=== PATIENT | male | born 1995 | race Caucasian/White ===

== ENCOUNTER 2021-01-26 11:40 | Emergency (ER) | payer BC ==
[2021-01-26 12:32] LABS: RED BLOOD COUNT 6.29 M/UL (4.20-5.50); WHITE BLOOD COUNT 19.4 K/UL (4.5-11.0)
[2021-01-26 12:55] LABS: BUN/CREATININE RATIO 18 (0-10)
[2021-01-26] MEDS ORDERED: ZOFRAN ODT 4 MG4 MG PO (16:35)
== END 2021-01-26 17:00 | disposition home or self-care (01) ==
LOC: ER1 11:40
PROVIDERS: Student in an Organized Health Care Education/Training Program
DX: K52.9 Noninfective gastroenteritis and colitis, unspecified (principal)
CPT/HCPCS: 80053; 81001; 83605; 83690; 85025; 93005; 96374; 96375; 99284; J2405; J2765; J7030; Q9967

== ENCOUNTER 2021-04-17 10:03 | Emergency (ER) | payer BC ==
[~2021-04-17 10:03] MED LIST: ZOFRAN ODT 4 MG4 MG PO
[2021-04-17 11:13] LABS: HEMOGLOBIN 16.3 gm/dl (14.0-17.5); RED BLOOD COUNT 5.8 M/UL (4.20-5.50)
[2021-04-17 11:36] LABS: BUN/CREATININE RATIO 14 (0-10)
[2021-04-17] MEDS ORDERED: TORADOL 10 MG T10 MG PO (12:13)
[2021-04-17] MEDS ORDERED: ZOFRAN4 MG PO (12:13)
[2021-04-17] MEDS ORDERED: HYDROCODON-ACE1 EAC4 PO (12:24)
== END 2021-04-17 12:35 | disposition home or self-care (01) ==
LOC: ER1 10:03
PROVIDERS: Physician Assistant
DX: N13.2 Hydronephrosis with renal and ureteral calculous obstruction (principal)
CPT/HCPCS: 80053; 81001; 85025; 96374; 96375; 99284; J1885; J2405; J2550

== ENCOUNTER 2021-10-02 23:55 | Emergency (ER) | payer BC ==
[~2021-10-02 23:55] MED LIST changes: +HYDROCODON-ACE1 EAC4 PO; +TORADOL 10 MG T10 MG PO; +ZOFRAN4 MG PO
[2021-10-03 02:12] LABS: HEMOGLOBIN 15.8 gm/dl (14.0-17.5); RED BLOOD COUNT 5.55 M/UL (4.20-5.50); WHITE BLOOD COUNT 14.7 K/UL (4.5-11.0)
[2021-10-03 02:27] LABS: BUN/CREATININE RATIO 13 (0-10)
[2021-10-03] MEDS ORDERED: FLOMAX0.4 MG PO (04:13)
[2021-10-03] MEDS ORDERED: IBUPROFEN600 MG PO (04:13)
[2021-10-03] MEDS ORDERED: ZOFRAN4 MG PO (04:13)
== END 2021-10-03 04:29 | disposition home or self-care (01) ==
LOC: ER1 23:55
PROVIDERS: Emergency Medicine
DX: N13.2 Hydronephrosis with renal and ureteral calculous obstruction (principal)
CPT/HCPCS: 80048; 81001; 85025; 96374; 96375; 99284; J1885; J2270; J2765